=== PATIENT | male | born 1960 | race Caucasian/White ===

== ENCOUNTER → 2018-06-29 10:31 | Outpatient (CLI) | payer MEDICAID, SELFPAY ==
--- NOTE | 2018-07-12 16:08 | LEAS ---
Arterial Study - Arterial Study Arterial Study: This is a 58-year-old male with bilateral lower extremity pain. The patient's pain is exacerbated by ambulation. His symptoms are suggestive of intermittent claudication due to peripheral arterial occlusive disease. Peripheral pulses also appear to be diminished by physical examination. The patient has a history of hyperlipidemia and smoking. Suspecting the presence of atherosclerotic peripheral arterial occlusive disease, the patient was brought to the noninvasive vascular laboratory at this time for the purpose of bilateral noninvasive lower extremity arterial assessment. Doppler signal assessment was used to evaluate the pulses at ankle level bilaterally. The posterior tibial and dorsalis pedis pulses were triphasic bilaterally. Segmental limb pressures were obtained bilaterally. The right ankle pressure, as determined by posterior tibial pulse, was measured at 161 mmHg. The right ankle pressure, as determined by dorsalis pedis pulse, was measured at 141 mmHg. The right digital pressure was measured at 106 mmHg. The left ankle pressure, as determined by posterior tibial pulse, was measured at 158 mmHg. The left ankle pressure, as determined by dorsalis pedis pulse, was measured at 156 mmHg. The left digital pressure was measured at 111 mmHg. Pulse?volume recordings were obtained bilaterally and segmentally. Waveform amplitudes appeared to be satisfactory at low thigh, calf, and ankle levels bilaterally. Waveform amplitudes appeared to be diminished at digital levels bilaterally. Resting ankle?brachial indices were calculated bilaterally. The resting right ankle?brachial index was calculated to be 1.22. The resting left ankle?brachial index was calculated to be 1.20. Digital?brachial indices were calculated bilaterally. The right digital-brachial index was calculated to be 0.80. The left digital-brachial index was calculated to be 0.84. Impression: Based upon the findings of this resting noninvasive lower extremity arterial study, there is no evidence of significant atherosclerotic peripheral arterial occlusive disease in the lower extremities bilaterally. Triphasic waveforms were noted at ankle level bilaterally. Resting ankle?brachial indices were bilaterally normal. Digital-brachial indices were also normal bilaterally. In summary, this represents a normal resting noninvasive lower extremity arterial study bilaterally.
--- NOTE | 2018-07-12 16:14 | LEAS_ITS ---
Arterial Study - Arterial Study Arterial Study: This is a 58-year-old male with bilateral lower extremity pain. The patient's pain is exacerbated by ambulation. His symptoms are suggestive of intermittent claudication due to peripheral arterial occlusive disease. Peripheral pulses also appear to be diminished by physical examination. The patient has a history of hyperlipidemia and smoking. Suspecting the presence of atherosclerotic peripheral arterial occlusive disease, the patient was brought to the [facility] vascular laboratory at this time for the purpose of bilateral noninvasive lower extremity arterial assessment. Doppler signal assessment was used to evaluate the pulses at ankle level bilaterally. The posterior tibial and dorsalis pedis pulses were triphasic bilaterally. Segmental limb pressures were obtained bilaterally. The right ankle pressure, as determined by posterior tibial pulse, was measured at 161 mmHg. The right ankle pressure, as determined by dorsalis pedis pulse, was measured at 141 mmHg. The right digital pressure was measured at 106 mmHg. The left ankle pressure, as determined by posterior tibial pulse, was measured at 158 mmHg. The left ankle pressure, as determined by dorsalis pedis pulse, was measured at 156 mmHg. The left digital pressure was measured at 111 mmHg. Pulse?volume recordings were obtained bilaterally and segmentally. Waveform amplitudes appeared to be satisfactory at low thigh, calf, and ankle levels bilaterally. Waveform amplitudes appeared to be diminished at digital levels bilaterally. Resting ankle?brachial indices were calculated bilaterally. The resting right ankle?brachial index was calculated to be 1.22. The resting left ankle?brachial index was calculated to be 1.20. Digital?brachial indices were calculated bilaterally. The right digital- brachial index was calculated to be 0.80. The left digital-brachial index was c alculated to be 0.84. Impression: Based upon the findings of this resting noninvasive lower extremity arterial study, there is no evidence of significant atherosclerotic peripheral arterial occlusive disease in the lower extremities bilaterally. Triphasic waveforms were noted at ankle level bilaterally. Resting ankle?brachial indices were bilaterally normal. Digital-brachial indices were also normal bilaterally. In summary, this represents a normal resting noninvasive lower extremity arterial study bilaterally.
== END ==
PROVIDERS: Family Provider Nurse Practitioner Family; PCP Nurse Practitioner Family; Referring Provider Nurse Practitioner Family; Visit Provider Nurse Practitioner Family
DX: R09.89 Other specified symptoms and signs involving the circulatory and respiratory systems (principal); L81.9 Disorder of pigmentation, unspecified
CPT/HCPCS: 93923

== ENCOUNTER → 2018-09-19 06:42 | Outpatient (CLI) | payer MEDICAID, SELFPAY ==
--- NOTE | 2018-09-19 10:39 | NEURO ---
NCS and/or EMG Patient Report Ordering Doctor: Beata Fuller DATE OF SERVICE: 09/19/18 This is a bilateral upper extremity nerve conduction study in the right upper extremity EMG performed on this 58-year-old male with numbness tingling and pain bilaterally in his hands. He reports difficulties in the left hand with digits 1, 4 and 5 and on the right side digits 1 and 2 are involved. He also describes leg weakness and pain to the extent that he has difficulty working. Symptoms have been present for greater than 1 year. He reports that he is healthy otherwise with no back pain or neck pain, no diabetes and no significant alcohol use. Bilateral upper extremity sensory motor nerve conduction study demonstrates severe prolongation of the median motor distal latencies with reduced amplitudes and conduction velocities. The median sensory distal latencies are also prolonged. The bilateral ulnar conduction velocities across the elbow are also reduced more so on the left side. Median and ulnar F-wave latencies bilaterally are prolonged. Right upper extremity needle electromyography is performed. Muscles evaluated included the first dorsal interosseous, abductor pollicis brevis, brachioradialis, biceps, triceps and deltoid muscles. Muscles in the median nerve distribution including the abductor pollicis brevis muscle did demonstrate large motor units however pathologic spontaneous activity and abnormal insertional activity was absent in all muscles tested. There is no evidence of radiculopathy or mononeuropathy otherwise. 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
== END ==
PROVIDERS: Family Provider Nurse Practitioner Family; PCP Nurse Practitioner Family; Referring Provider Internal Medicine Pulmonary Disease; Visit Provider Internal Medicine Pulmonary Disease
DX: G56.03 Carpal tunnel syndrome, bilateral upper limbs (principal)
CPT/HCPCS: 95886; 95911

== ENCOUNTER → 2019-02-06 | Outpatient (CLI) | payer MEDICAID, SELFPAY ==
--- NOTE | 2019-02-06 09:53 | NEURO ---
NCS and/or EMG Patient Report Ordering Doctor: Silas Obando DATE OF SERVICE: 02/06/19 This is a right lower extremity nerve conduction study performed on this 58-year-old male with numbness in his toes on the right foot. There is no history of diabetes or back pain. Right lower extremity sensory and motor nerve conduction studies along with F waves and H reflexes are performed. The sural sensory and common peroneal motor as well as tibial motor responses are normal. F-wave latencies from the tibial and common peroneal nerves are normal. The H reflexes from the bilateral tibial nerves are preserved although the left one is mildly diminished of unclear clinical significance. Essentially normal nerve conduction study of the right lower extremity. Symptoms may be consistent with small fiber neuropathy and should be clinically correlated.
== END | disposition home or self-care (01) ==
LOC: PSN 07:58
PROVIDERS: Family Provider Nurse Practitioner Family; PCP Nurse Practitioner Family; Referring Provider Psychiatry & Neurology Neurology; Visit Provider Psychiatry & Neurology Neurology
DX: G62.9 Polyneuropathy, unspecified (principal); R20.0 Anesthesia of skin; R20.2 Paresthesia of skin
CPT/HCPCS: 95909